=== PATIENT | female | born 1985 | race Caucasian/White ===

== ENCOUNTER 2017-08-09 13:08 | Emergency (ER) | payer MEDICAID ==
[2017-08-09 13:15] VITALS: RESP 18; TEMP 98.1
--- NOTE | 2017-08-09 14:01 | EDPHY ---
H & P Time Seen by Provider: 08/09/17 13:15 HPI/ROS: Chief complaint: Right foot pain History of present illness: This is a 32-year-old female who presents to the emergency department for evaluation of right foot pain. She reports the onset of symptoms over the last day. She denies precipitating factors. It makes it difficult to move the foot and ambulate. She denies associated signs or symptoms including no open wounds, no abnormal coolness or paresthesias in the foot. No other complaints. Smoking Status: Former smoker Physical Exam: General: Alert, nontoxic Skin: Mild edema to the lateral aspect of the right foot. Musculoskeletal: Tenderness along the lateral aspect of the right foot. No crepitus or bony deformity. There is pain when patient attempts to [place] the foot. She is moving the digits and ankle well. Achilles is unremarkable. Vascular: DP and PT pulses 2+. Neurologic: Sensation intact in the right foot. Constitutional: Initial Vital Signs Temperature (C) 36.7 C 08/09/17 13:13 Heart Rate 78 08/09/17 13:13 Respiratory Rate 18 08/09/17 13:13 Blood Pressure 112/78 08/09/17 13:13 O2 Sat (%) 96 08/09/17 13:13 O2 Delivery Mode Room Air Allergies/Adverse Reactions: latex Allergy (Verified 10/01/15 17:31) Home Medications: Medication Instructions Recorded NK [No Known Home Meds] 10/01/15 MDM/Departure - MDM Imaging Results: Imaging Impressions Foot X-Ray 08/09/17 13:35 Impression: Negative for fracture. Imaging: I viewed and interpreted images myself Procedures: Procedure: Splint placement. A walking boot was applied. After application of the splint I returned and re- examined the patient. The splint was adequately immobilizing the joint and distal to the splint the patient's circulation and sensation was intact. ED Course/Re-evaluation: Patient is seen under the supervision of my secondary supervising physician Dr. Roland Simmons. Patient presents to the emergency department for right foot pain. Pain is at the base of the right 5th metatarsal. Pain with movement. X-rays negative. I do believe this is musculoskeletal. She is placed in an Iván wrap and walking boot was applied for comfort. Home care is discussed. She is to follow up with her primary care doctor or Podiatry for recheck. Return precautions are given. Patient voiced understanding and agreement with plan. Differential Diagnosis: Included but not limited to contusion, sprain or strain, bony fracture, cellulitis, unlikely DVT or superficial thrombophlebitis - Depart Disposition: Home, Routine, Self-Care Clinical Impression: Right foot pain Condition: Good Instructions: Arthralgia (ED) Additional Instructions: Follow-up with a primary care doctor or a spinning bath person for continued care Use ibuprofen 600 mg 3 times a day for the next 2-3 days for symptom control In addition you can use Tylenol 650 mg 3 times a day and common a argueta with the ibuprofen for pain control Rest the injury as much as possible Elevate the injury Warm compresses If symptoms worsen or new symptoms develop return to the emergency room for recheck Referrals: BETH HENRIQUEZ [Other] - As per Instructions Soha Corona [Doctor of Podiatric Medicine] - As per Instructions
[2017-08-09 14:19] VITALS: BP 127/64; PULSE 73; O2SAT 95
== END 2017-08-09 14:05 | disposition home or self-care (01) ==
DX: M79.671 Pain in right foot (principal); Z87.891 Personal history of nicotine dependence; Z91.040 Latex allergy status
CPT/HCPCS: L4386